=== PATIENT | male | born 1980 | race African-American/Black ===

== ENCOUNTER 2019-11-13 18:19 | Emergency (ER) | payer OTHER, SELFPAY ==
--- NOTE | ~2019-11-13 | XR_ITS ---
EXAMINATION: XR chest 2V EXAM DATE: 11/13/2019 18:52 INDICATION: Midsternal chest pain. TECHNIQUE: Frontal and lateral projections of the chest obtained and reviewed. There is no prior razia dy for comparison. FINDINGS: The lungs are clear. There are no pleural effusions. The cardiomediastinal silhouette is within normal limits. There is no pneumothorax suspected. The bones and soft tissues are unremarkab le. IMPRESSION: Normal chest x-ray exam. Reviewed, dictated and finalized at location A. IMPRESSION: Normal chest x-ray exam.
[2019-11-13 18:24] VITALS: BP 144/114; PULSE 91; RESP 20; TEMP 36.9; O2SAT 99
[2019-11-13 18:30] VITALS: PULSE 89
--- NOTE | 2019-11-13 18:32 | ECG_ITS ---
Measurements Intervals [place] Rate: 90 P: 67 LA: 169 QRS: 37 QRSD: 100 T: 28 QT: 356 QTc: 436 Interpretive Statements SINUS RHYTHM NONSPECIFIC ST ELEVATION IN DIFFUSE LEADS- PROBABLY EARLY REPOLARIZATION BASELINE ARTIFACT- I, III, AVL, AVF BORDERLINE ECG Electronically Signed On 11-14-2019 7:15:31 CDT by Tonny Cazares D.O.
[2019-11-13 18:44] LABS: Basophils Percent Auto 0.1 % (0.2-1.2); Eosinophils Absolute Auto 0.2 K/mm3 (0-0.3); Eosinophils Percent Auto 2.6 % (0-4.4); Hematocrit 38.3 % (42.0-52.0); Hemoglobin 12.1 g/dL (14.0-18.0); Immature Granulocyte Absolute 0.02 K/mm3 (0.00-0.031); Immature Granulocyte Percent A 0.3 % (0-0.5); Lymphocytes Absolute Auto 2.84 K/mm3 (0.9-3.2); Lymphocytes Percent Auto 41.4 % (18.3-44.2); Mean Corpuscular HGB Conc 31.6 g/dl (32-36); Mean Corpuscular Hemoglobin 22.3 pg (26-34); Mean Corpuscular Volume 70.7 fl (80-100); Mean Platelet Volume 11.4 fl (7.4-10.4); Monocytes Absolute Auto 0.7 K/mm3 (0.1-0.6); Monocytes Percent Auto 10.6 % (2.6-8.5); Neutrophils Absolute Auto 3.1 K/mm3 (1.3-6.7); Platelet Count Result 229 k/mm3 (150-375); Red Blood Count 5.42 M/mm3 (4.6-6.20); Red Cell Distribution Width 14.6 % (11.5-14.5); White Blood Count 6.9 K/mm3 (4.5-10.0)
[2019-11-13 18:52] LABS: INR 0.9; Prothrombin Time 12.1 Seconds (11.1-14.7)
--- NOTE | 2019-11-13 19:18 | ED.CHESTPAIN ---
HPI - Chest Pain General Chief Complaint: Chest Pain Stated Complaint: CHEST PAIN Time Seen by Provider: 11/13/19 18:23 Source: patient Mode of arrival: ambulatory Limitations: no limitations History of Present Illness HPI narrative: This patient is a 39 year old male who presents for evaluation of left chest tightness. Patient states he developed left chest tightness 1 hour ago as he was riding in a car. He reports his pain has been constant and it is associated with mild shortness of breath. He took 2 tylenol at his onset of pain and he states his pain has not changed. He also reports this morning he had multiple episodes of burning midsternal pain radiating from chest to upper abdomen. He states this was indigestion so he made himself have emesis and he felt better. He states he is having some recurrence of his indigestion now. complaint: chest pain Onset (ago): hour(s) (1) Timing of current episode: constant Prior episodes: No Onset: during rest Pain location: left chest Pain radiation: none Quality: tightness Relieving factors: nothing Exacerbating factors: nothing Risk Factors Coronary artery disease risk factors: diabetes Related Data Allergies Allergy/AdvReac Type Severity Reaction Status Date / Time No Known Allergies Allergy Unverified 11/13/19 18:31 Review of Systems Review of Systems: All systems reviewed & are unremarkable except as noted in HPI and below Constitutional: Constitutional: Denies chills and Denies fever(s) Cardiovascular: Cardiovascular: Reports chest pain, Denies rapid heart rate, Denies radiating jaw, neck or arm pain and Denies slow heart rate Respiratory: Respiratory: Denies cough, Reports dyspnea and Denies wheezing Gastrointestinal: Gastrointestinal: Reports abdominal pain, Denies melena, Denies hematochezia and Reports heartburn Musculoskeletal: Musculoskeletal: Denies back pain PMF Past Medical History Medical History (Updated 11/14/19 @ 00:00 by Background D[place]ick) Diabetes mellitus Surgical History Surgical History (Updated 11/13/19 @ 19:19 by Unique Gasca MD) No significant past surgical history Social History Social History (Updated 11/13/19 @ 19:19 by Unique Gasca MD) Smoking packs per day: 0.75 Smoking cigarettes per day: 15.0 Alcohol intake: current Alcohol use details: social Gender identity (if verbalized by the patient): Male Exam Narrative: Exam Narrative: GENERAL: Well-appearing, well-nourished, and in no acute distress. HEAD: Normocephalic, atraumatic EYES: PERRLA and EOMI, conjunctiva clear without discharge THROAT:Mucous membranes moist, Oropharynx normal without erythema, exudate, peritonsillar swelling or fluctuance NECK: Supple, without lymphadenopathy or mass RESPIRATORY: No respiratory distress, Airway patent, Respirations non-labored, Clear to auscultation without rales, rhonchi or wheeze HEART: Regular rate and rhythm. No murmur heard. Normal peripheral pulses. ABDOMEN: Soft, epigastric tenderness, nondistended, normal active bowel sounds. No masses. No rebound or guarding, No organomegaly. EXTREMITIES: No edema, normal strength with full range of motion. SKIN: Warm, dry, normal color without rash NEURO: Alert and oriented x3. CN 2-12 grossly intact. No focal deficits. PSYCH: Normal mood and affect. Course Reevaluation(s) Reevaluation #1: Patient states he has no chest pain. I have discussed with patient his symptoms were atypical for angina. I reviewed labs and he was found to have anemia that is chronic. He also knows he has uncontrolled diabetes Date: 11/13/19 Time: 22:36 Vital Signs Vital signs: Vital Signs Temperature 98.5 F 11/13/19 18:24 Pulse Rate 91 11/13/19 18:24 Respiratory Rate 20 11/13/19 18:24 Blood Pressure 144/114 H 11/13/19 18:24 Pulse Oximetry 99 11/13/19 18:24 Temperature 98.5 F 11/13/19 18:24 Pulse Rate 79 11/13/19 22:48 Respiratory Rate 2
[2019-11-13 19:30] LABS: Troponin I < 0.012 ng/mL (0.000-0.034)
[2019-11-13 19:32] LABS: D Dimer < 0.22 ug/mL (<0.48)
[2019-11-13] MEDS: BELLADONNA ALK/PHENOB ELIX 10 ML, MAG HYDROX/ALUMINUM HYD/SIMETH 30 ML, LIDOCAINE HCL 2... PO (19:33)
[2019-11-13] MEDS: PANTOPRAZOLE SODIUM IV 40 MG VIAL IV PUSH (19:34)
[2019-11-13] MEDS: ONDANSETRON INJ 4 MG/2 ML VIAL IV PUSH (19:34)
[2019-11-13 19:36] LABS: Alanine Aminotransferase 14 U/L (4-50); Albumin Level 4.2 g/dL (3.5-5.1); Alkaline Phosphatase 117 U/L (38-126); Aspartate Amino Transferase 25 U/L (17-59); Bilirubin,Total 0.5 mg/dL (0.2-1.3); Blood Urea Nitrogen 13 mg/dL (9-20); Calcium 9.4 mg/dL (8.4-10.2); Carbon Dioxide 27 mmol/L (22-30); Chloride 94 mmol/L (98-107); Estimated CRCL calculation 151 ml/min; Estimated Glomerular Filt Rate > 60; Glucose 422 mg/dL (75-110); Lipase 56 U/L (23-300); Potassium 4.3 mmol/L (3.4-5.0); Sodium 130 mmol/L (137-145)
[2019-11-13 19:39] VITALS: BP 128/93; PULSE 91; RESP 20; O2SAT 98
[2019-11-13 20:30] VITALS: BP 134/95; PULSE 75; RESP 20; O2SAT 100
[2019-11-13 21:31] VITALS: BP 147/103; PULSE 82; RESP 20; O2SAT 99
[2019-11-13 21:59] LABS: Troponin I < 0.012 ng/mL (0.000-0.034)
[2019-11-13 22:48] VITALS: BP 137/99; PULSE 79; RESP 20; O2SAT 99
== END 2019-11-13 22:59 | disposition home or self-care (01) ==
PROVIDERS: Emergency Medicine; Emergency Provider General Practice
DX: R07.89 Other chest pain (principal); E11.65 Type 2 diabetes mellitus with hyperglycemia; D64.9 Anemia, unspecified; F17.290 Nicotine dependence, other tobacco product, uncomplicated; R94.31 Abnormal electrocardiogram [ECG] [EKG]
CPT/HCPCS: 36415; 71046; 80048; 80076; 83690; 84484; 85025; 85380; 85610; 85730; 93005; 96374; 96375; 99284; A9270; C9113; J2405

== ENCOUNTER 2020-06-03 21:47 | Emergency (ER) | payer OTHER, SELFPAY ==
--- NOTE | 2020-06-03 21:54 | ED.SKABFB ---
HPI - Skin/Abscess/Foreign Bdy General Chief complaint: Animal Bite Stated complaint: spider bite to back Time Seen by Provider: 06/03/20 21:53 Source: patient Mode of arrival: ambulatory Limitations: no limitations History of Present Illness HPI narrative: Patient is a 40-year-old male who presents for evaluation of irritation, rash to upper back. Patient states his symptoms started this morning when he was driving he felt something crawling on his back then felt immediate itchiness after he thinks he was bitten by something. He put his hand back there and had some raised areas on his skin that were very itchy. He denies any redness or discharge from these. No blistering. No new soaps, lotions or detergents. No rashes on other parts of his body. No fever or chills. He states he has had some increased itchiness at the sites today. He does have a history of shingles and states this feels very different. Patient states blood sugars have been well controlled. He denies any nausea, vomiting, chest pain or shortness of breath. Related Data Allergies Allergy/AdvReac Type Severity Reaction Status Date / Time No Known Allergies Allergy Unverified 11/13/19 18:31 Review of Systems Review of Systems: Narrative: CONSTITUTIONAL: Denies fever, chills, or sweats. EYES: Denies visual changes, redness, or discharge. ENT: Denies rhinorrhea, congestion, sore throat, or otalgia. CARDIOVASCULAR: Denies chest pain, palpitations, or edema. RESPIRATORY: Denies cough or dyspnea. GASTROINTESTINAL: Denies abdominal pain, nausea, vomiting, or diarrhea. GENITOURINARY: Denies dysuria or hematuria. SKIN: Reports raised bite hallman to upper back, reports itching without blisters MUSCULOSKELETAL: Denies back pain, joint pain, or myalgia. NEUROLOGIC: Denies headache, numbness, or weakness. [facility] Past Medical History Medical History Diabetes mellitus Surgical History Surgical History No significant past surgical history Social History Social History Smoking packs per day: 0.75 Smoking cigarettes per day: 15.0 Alcohol intake: current Gender identity (if verbalized by the patient): Male Exam Narrative: Exam Narrative: GENERAL: Awake, alert, conversant HEAD: Normocephalic, atraumatic. EYES: PERRLA and EOMI. ENT: Nares clear, no rhinorrhea or epistaxis. Mucous membranes moist. NECK: Supple. CHEST: No respiratory distress, breathing even and non labored HEART: Regular rate, sinus rhythm ABDOMEN:Non distended, non tender EXTREMITIES: Normal range of motion. No edema. SKIN: Warm, dry, 5 raised, mildly indurated areas to upper cervical region which cross midline, with mild erythema, no fluctuance, no drainage. No vesicles or clustering. No urticaria. They are mildly tender to palpation. No associated cervical lymphadenopathy. No petechiae. No purulent drainage. No surrounding cellulitis. NEURO:No focal deficits. Alert and oriented x3 Course Vital Signs Vital signs: Vital Signs Pulse Rate 96 06/03/20 21:56 Respiratory Rate 18 06/03/20 21:56 Blood Pressure 133/88 06/03/20 21:56 Pulse Oximetry 98 06/03/20 21:56 Pulse Rate 96 06/03/20 21:56 Respiratory Rate 18 06/03/20 21:56 Blood Pressure 133/88 06/03/20 21:56 Pulse Oximetry 98 06/03/20 21:56 MDM - Skin/Abscess/Foreign Bdy MDM Narrative Medical decision making narrative: Patient presented for irritation, itching rash to upper cervical region, was concern for possible envenomation versus bite. The time of assessment, ABCs are intact. No sign of anaphylaxis. No current chest pain, shortness of breath, no diffuse urticaria. Patient has had symptoms over 12 hours at this point, wanted to be evaluated due to the itchy nature of these. No evidence of abscess or cellulitis. This does not seem co
[2020-06-03 21:56] VITALS: BP 133/88; PULSE 96; RESP 18; O2SAT 98
[2020-06-03] MEDS: FAMOTIDINE 20 MG TABLET PO (22:12)
[2020-06-03] MEDS: diphenhydrAMINE HCl CAP 25 MG CAPSULE PO (22:13)
== END 2020-06-03 22:29 | disposition home or self-care (01) ==
LOC: ANHED 22:19
PROVIDERS: Emergency Provider Emergency Medicine; PCP Family Medicine
DX: R21 Rash and other nonspecific skin eruption (principal); W57.XXXA Bitten or stung by nonvenomous insect and other nonvenomous arthropods, initial encounter
CPT/HCPCS: 99283; A9270; J1100

== ENCOUNTER 2020-07-05 18:55 | Emergency (ER) | payer OTHER, SELFPAY ==
[2020-07-05 18:57] VITALS: BP 177/98; PULSE 97; RESP 16; TEMP 36.6; O2SAT 99
[2020-07-05 19:07] LABS: Glucose Point of Care 177 (65-105)
--- NOTE | 2020-07-05 19:49 | ED.ABDPAIN ---
HPI - Abdominal Pain General Chief Complaint: Urogenital-Male Stated Complaint: STD CHECK Time Seen by Provider: 07/05/20 19:02 Source: patient Mode of arrival: ambulatory Limitations: no limitations History of Present Illness HPI narrative: Patient is a 40-year-old male who presents requesting STD evaluation patient notes that he has some slight tingling with urination patient denies any back pain abdominal pain hematuria or other concerns. Patient denies any known exposures. Patient would like to be tested and treated and notes he will follow with primary care Related Data Allergies Allergy/AdvReac Type Severity Reaction Status Date / Time No Known Allergies Allergy Unverified 11/13/19 18:31 Review of Systems Review of Systems: All systems reviewed & are unremarkable except as noted in HPI and below PMFSH Past Medical History Medical History Diabetes mellitus Surgical History Surgical History No significant past surgical history Social History Social History Smoking packs per day: 0.75 Smoking cigarettes per day: 15.0 Alcohol intake: current Gender identity (if verbalized by the patient): Male Exam Narrative: Exam Narrative: GENERAL: Well-appearing, well-nourished, and in no acute distress. HEAD: Normocephalic, atraumatic. EYES: PERRLA and EOMI. ENT: Nares clear, no rhinorrhea or epistaxis. Mucous membranes moist. ABDOMEN: Soft, nontender, nondistended EXTREMITIES: Normal range of motion. No edema. SKIN: Warm, dry, no rash. NEURO: No focal deficits. Alert and oriented x3. PSYCH: Normal mood and affect. Course Course Emergency Course: Patient tested and treated as requested will follow with primary care felt appropriate for outpatient reevaluation Vital Signs Vital signs: Vital Signs Temperature 98 F 07/05/20 18:57 Pulse Rate 97 07/05/20 18:57 Respiratory Rate 16 07/05/20 18:57 Blood Pressure 177/98 H 07/05/20 18:57 Pulse Oximetry 99 07/05/20 18:57 Temperature 98 F 07/05/20 18:57 Pulse Rate 97 07/05/20 18:57 Respiratory Rate 16 07/05/20 18:57 Blood Pressure 177/98 H 07/05/20 18:57 Pulse Oximetry 99 07/05/20 18:57 MDM - Abdominal Pain MDM Narrative Medical decision making narrative: Patient was tested for STDs as requested will be discharged home with outpatient management provided with reasons to return Lab Data Labs: Lab Results 07/05/20 Range/Units 19:02 POC Capillary Glucose 177 H (65-105) mg/dl Discharge Plan Discharge Clinical Impression: Urethritis Patient Disposition: Home, Self-Care Condition: Stable Instructions: Antibiotic Form, Safe Sex Practices (ED) Additional Instructions: Follow up with primary care in the next 2-3 days for re-evaluation and culture results. Antibiotics as prescribed. Increase fluid intake. Tylenol and Motrin for pain and or fever if needed. Follow up with your doctor for further care. Call your doctor or return to the emergency department if needed for worsening symptoms or problems, especially if you have persistent high fever, vomiting, inability to urinate, weakness, blood in your urine, chnage in mental status, or other serious concerns. Prescriptions: New doxycycline hyclate 100 mg capsule 100 mg PO BID 7 Days Qty: 14 RF: 0 No Action metformin 500 mg tablet 500 mg PO BID Qty: 30 RF: 0 omeprazole magnesium [Prilosec OTC] 20 mg tablet,delayed release (DR/EC) 20 mg PO DAILY Qty: 14 RF: 0 sucralfate [Carafate] 1 gram tablet 1 gm PO Q6H Qty: 30 RF: 0 cephalexin [Keflex] 500 mg capsule 500 mg PO Q8H 10 Days Qty: 30 RF: 0 diphenhydramine HCl [Benadryl] 25 mg capsule 25 mg PO TID PRN (Reason: allergic reaction) Qty: 14 RF: 0 ibuprofen 400 mg tablet 400 mg PO TID PRN (
[2020-07-05 19:59] LABS: Add Urine Microscopic? YES; Appearance Urine Clear (Clear); Bacteria Urine Trace /hpf; Bilirubin Urine Negative (Negative); Blood Urine Negative (Negative); Color Urine Colorless (Yellow); Glucose Urine UA 3+ mg/dL (Negative); Ketones Urine Negative (Negative); Leukocyte Esterase Ur Negative LEU/UL (Negative); Nitrate Urine Negative (Negative); Protein Urine Negative (Negative); RBC Urine 0-2 /hpf (0-2); Specific Grav Ur 1.012 (1.001-1.035); Urobilinogen Urine Negative mg/dL (<2.0); WBC Urine 0-3 /hpf
[2020-07-05] MEDS: LIDOCAINE HCL 1% LOCAL INJ 20 ML VIAL (20:05)
[2020-07-05] MEDS: cefTRIAXone 250 MG VIAL 500 MG IM (20:05)
== END 2020-07-05 20:10 | disposition home or self-care (01) ==
PROVIDERS: Emergency Medicine Emergency Medical Services; Emergency Provider Emergency Medicine; PCP Family Medicine
DX: N34.2 Other urethritis (principal); E11.9 Type 2 diabetes mellitus without complications; F17.210 Nicotine dependence, cigarettes, uncomplicated; Z79.84 Long term (current) use of oral hypoglycemic drugs
CPT/HCPCS: 81001; 87491; 87591; 96372; 99283; J0696

== ENCOUNTER 2020-12-15 12:07 | Emergency (ER) | payer OTHER, SELFPAY ==
--- NOTE | ~2020-12-15 | XR_ITS ---
EXAMINATION: XR shoulder LT min 2V EXAM DATE: 12/15/2020 15:20 INDICATION: Pain with movement X3 weeks worse today, generalized left shoulder pain. No known recent injury. TECHNIQUE: The following left shoulder projections obtained: frontal projection with internal rotatio n, frontal projection with external rotation, Grashey, and scapular Y view (4+ views). There is no p rior study for comparison. FINDINGS: Left lung apex unremarkable. Unremarkable left glenohumeral and acromioclavicular joints. There are no acute fractures or dislocations identified. There is no subcutaneous gas. Several sma ll calcifications along the expected location of biceps tendon, rotator cuff. There are no radiopaqu e foreign bodies. IMPRESSION: Small left biceps tendon/rotator cuff calcific tendinosis. Reviewed, dictated and finalized at location A.
[2020-12-15 13:56] VITALS: BP 143/92; PULSE 77; RESP 16; TEMP 36.9; O2SAT 100
--- NOTE | 2020-12-15 14:50 | ED.GENADULT ---
HPI - General Adult General Chief complaint: Extremity Injury, Upper Stated complaint: L Shoulder and low back pain Time Seen by Provider: 12/15/20 14:48 Source: patient and family Mode of arrival: ambulatory Limitations: no limitations History of Present Illness HPI narrative: Patient is here for evaluation of left shoulder pain. He was evaluated and treated in an urgent care several weeks ago and given muscle relaxants and told to take ibuprofen he states that he got no relief. He denies any recent or remote injury to his left shoulder or neck. 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 The pain came on and has gotten worse, it is especially painful in the back of his shoulder. Forward extension does not bother him but abduction and active internal rotation is painful. Onset (ago): week(s) Severity: moderate Quality: aching Pain Consistency: constant Relieving factors: none Exacerbating factors: movement Associated symptoms: denies other symptoms Related Data Allergies Allergy/AdvReac Type Severity Reaction Status Date / Time No Known Allergies Allergy Verified 12/15/20 14:14 Review of Systems Review of Systems: All systems reviewed & are unremarkable except as noted in HPI and below PMFSH Past Medical History Medical History Diabetes mellitus Surgical History Surgical History No significant past surgical history Social History Social History Smoking packs per day: 0.75 Smoking cigarettes per day: 15.0 Alcohol intake: current Gender identity (if verbalized by the patient): Male Exam Const: General: healthy appearing, no acute distress and alert HENMT: Head: normal to inspection Eyes: Pupils: Equal, round and reactive pupils present Resp: Effort & Inspection: normal respiratory effort Cardio: Rate: regular rate Rhythm: regular rhythm Skin: General skin exam: normal color Extrem: Left upper extremity: normal to inspection, normal capillary refill and shoulder/upper arm inspection abnormal, tenderness over the deltoid bursa (to the back) and abnormal ROM pain with active ROM in ABduction, in internal rotation and external rotation- and pain with passive ROM (same) Psych: Mental Status: mental status grossly normal Course Course Emergency Course: Radiology results reviewed with patient he has tendinitis in his rotator cuff. He got very little relief from the 800 mg ibuprofens he was previously prescribed. I will give him a Medrol Dosepak to see if that helps with the inflammation. He has had a question about acid reflux I gave him recommendations for [id number] medications. He is to follow-up with his primary care physician to determine if he is eligible for a steroid injection in his shoulder. If this treatment does not Vital Signs Vital signs: Vital Signs Temperature 36.9 C 12/15/20 13:56 Pulse Rate 77 12/15/20 13:56 Respiratory Rate 16 12/15/20 13:56 Blood Pressure 143/92 H 12/15/20 13:56 Pulse Oximetry 100 12/15/20 13:56 Temperature 36.9 C 12/15/20 13:56 Pulse Rate 77 12/15/20 13:56 Respiratory Rate 16 12/15/20 13:56 Blood Pressure 143/92 H 12/15/20 13:56 Pulse Oximetry 100 12/15/20 13:56 Medical Decision Making Vital Signs Vital Signs: Vital Signs Temperature 36.9 C 12/15/20 13:56 Pulse Rate 77 12/15/20 13:56 Respiratory Rate 16 12/15/20 13:56 Blood Pressure 143/92 H 12/15/20 13:56 Pulse Oximetry 100 12/15/20 13:56 Temperature 36.9 C 12/15/20 13:56 Pulse Rate 77 12/15/20 13:56 Respiratory Rate 16 12/15/20 13:56 Blood Pressure 143/92 H 12/15/20 13:56 Pulse Oximetry 100 12/15/20 13:56 Discharge Plan Discharge Clinical Impression: Calcific tendonitis of left shoulder Acid reflux Qualifiers: Esophagitis presence: esophagitis
[2020-12-15] MEDS: traMADol HCL (*CRX) 50 MG TABLET PO (15:35)
== END 2020-12-15 16:19 | disposition home or self-care (01) ==
PROVIDERS: Emergency Provider Emergency Medicine; PCP Family Medicine
DX: M75.32 Calcific tendinitis of left shoulder (principal); K21.9 Gastro-esophageal reflux disease without esophagitis; E11.9 Type 2 diabetes mellitus without complications; F17.210 Nicotine dependence, cigarettes, uncomplicated
CPT/HCPCS: 73030; 99283; A9270

== ENCOUNTER 2020-12-23 06:19 | Emergency (ER) | payer OTHER, SELFPAY ==
--- NOTE | ~2020-12-23 | XR_ITS ---
EXAMINATION: XR chest 1V portable DATE: 12/23/2020 06:46 INDICATION: Cough. Sore throat. TECHNIQUE: A single frontal view of the chest was obtained. COMPARISON: Chest 2 views 11/13/2019, CT abdomen and pelvis 08/16/2018 FINDINGS: The chest demonstrates clear lungs without pneumonia, pleural effusion, or pneumothorax. Th e heart size is normal. IMPRESSION: 1. No acute cardiopulmonary disease. Reviewed, dictated and finalized at location A.
[2020-12-23 06:32] VITALS: BP 153/105; PULSE 93; RESP 18; TEMP 36.6; O2SAT 99
[2020-12-23 07:12] LABS: Basophils Percent Auto 0.4 % (0.2-1.2); Eosinophils Absolute Auto 0.4 K/mm3 (0-0.3); Hemoglobin 13.9 g/dL (14.0-18.0); Immature Granulocyte Absolute 0.05 K/mm3 (0.00-0.031); Immature Granulocyte Percent A 0.7 % (0-0.5); Lymphocytes Absolute Auto 2.61 K/mm3 (0.9-3.2); Lymphocytes Percent Auto 36.3 % (18.3-44.2); Mean Corpuscular HGB Conc 30.9 g/dl (32-36); Mean Corpuscular Hemoglobin 22.6 pg (26-34); Mean Corpuscular Volume 73.3 fl (80-100); Mean Platelet Volume 10.9 fl (7.4-10.4); Monocytes Absolute Auto 0.8 K/mm3 (0.1-0.6); Monocytes Percent Auto 10.4 % (2.6-8.5); Neutrophils Absolute Auto 3.3 K/mm3 (1.3-6.7); Neutrophils Percent Auto 46.2 % (45.5-73.1); Platelet Count Result 251 k/mm3 (150-375); Red Blood Count 6.14 M/mm3 (4.6-6.20); Red Cell Distribution Width 15.3 % (11.5-14.5); White Blood Count 7.2 K/mm3 (4.5-10.0)
[2020-12-23 07:15] LABS: Albumin Level 4.3 g/dL (3.5-5.1); Alkaline Phosphatase 161 U/L (38-126); Aspartate Amino Transferase 27 U/L (17-59); Bilirubin,Total 0.4 mg/dL (0.2-1.3); Blood Urea Nitrogen 11 mg/dL (9-20); Carbon Dioxide 26 mmol/L (22-30); Estimated CRCL calculation 150 ml/min; Estimated Glomerular Filt Rate > 60; Glucose 213 mg/dL (75-110); Lipase 146 U/L (23-300)
--- NOTE | 2020-12-23 07:23 | ED.GENADULT ---
HPI - General Adult General Chief complaint: Unspecified Stated complaint: Sore throat Time Seen by Provider: 12/23/20 07:03 History of Present Illness HPI narrative: Patient is a 40-year-old male who presents ER with cold symptoms. For the last 2 days he has had sinus congestion with sinus pressure. Last night he developed postnasal drip with productive cough. When he is coughing it causes him pain in his abdomen and chest. No fevers or chills or sweats. He does have fatigue. No known sick contacts with the exception of his daughter who apparently had exposure to Covid. Patient has no loss of taste or smell. Denies dyspnea. Cannot report any alleviating factors. Related Data Home Medications Medication Instructions Recorded Confirmed gabapentin 12/23/20 sitagliptin [Januvia] mg 12/23/20 Allergies Allergy/AdvReac Type Severity Reaction Status Date / Time No Known Allergies Allergy Verified 12/15/20 14:14 Review of Systems Review of Systems: All systems reviewed & are unremarkable except as noted in HPI and below Constitutional: Constitutional: Denies chills and Denies fever(s) ENT: Reports nasal congestion, Reports post nasal drip and Reports sore throat Respiratory: Respiratory: Denies chest congestion, Reports cough and Denies dyspnea Gastrointestinal: Gastrointestinal: Reports abdominal pain, Reports nausea and Reports vomiting PMFSH Past Medical History Medical History Diabetes mellitus Surgical History Surgical History No significant past surgical history Social History Social History Smoking packs per day: 0.75 Smoking cigarettes per day: 15.0 Alcohol intake: current Alcohol use details: social Gender identity (if verbalized by the patient): Male Exam Narrative: Exam Narrative: GENERAL: Well-appearing, well-nourished, and in no acute distress. HEAD: Normocephalic, atraumatic. EYES: PERRL and EOMI. ENT: Mucous membranes moist. Normal-appearing posterior oropharynx without tonsillar hypertrophy or exudate. Uvula midline and nonedematous. Tolerating oral secretions without issue. CHEST: Clear to auscultation. No respiratory distress. HEART: Regular rate and rhythm. Normal peripheral pulses. ABDOMEN: Soft, nontender, nondistended. EXTREMITIES: Normal range of motion. No edema. NEURO: Alert and oriented x3. Course Course Emergency Course: Strep negative no evidence of pneumonia. Discharge with supportive care. Encouraged patient to obtain Covid vaccination. Vital Signs Vital signs: Vital Signs Temperature 97.9 F 12/23/20 06:32 Pulse Rate 93 12/23/20 06:32 Respiratory Rate 18 12/23/20 06:32 Blood Pressure 153/105 H 12/23/20 06:32 Pulse Oximetry 99 12/23/20 06:32 Temperature 97.9 F 12/23/20 06:32 Pulse Rate 93 12/23/20 06:32 Respiratory Rate 18 12/23/20 06:32 Blood Pressure 153/105 H 12/23/20 06:32 Pulse Oximetry 99 12/23/20 06:32 Medical Decision Making Vital Signs Vital Signs: Vital Signs Temperature 97.9 F 12/23/20 06:32 Pulse Rate 93 12/23/20 06:32 Respiratory Rate 18 12/23/20 06:32 Blood Pressure 153/105 H 12/23/20 06:32 Pulse Oximetry 99 12/23/20 06:32 Temperature 97.9 F 12/23/20 06:32 Pulse Rate 93 12/23/20 06:32 Respiratory Rate 18 12/23/20 06:32 Blood Pressure 153/105 H 12/23/20 06:32 Pulse Oximetry 99 12/23/20 06:32 Lab Data Result diagrams: 12/23/20 06:55 12/23/20 06:55 Labs: Lab Results 12/23/20 12/23/20 12/23/20 Range/Units 06:55 06:55 07:47 WBC 7.2 (4.5-10.0) K/mm3 RBC 6.14 (4.6-6.20) M/mm3 Hgb 13.9 L (14.0-18.0) g/dL Hct 45.0 (42.0-52.0) % MCV 73.3 L (80-100) fl MCH 22.6 L (26-34) pg MCHC 30.9 L (32-36) g/dl RDW 15.3 H (11.5
[2020-12-23 08:04] LABS: Alanine Aminotransferase 23 U/L (4-50); Anion Gap 9 mmol/L (8-16); Calcium 9.2 mg/dL (8.4-10.2); Chloride 98 mmol/L (98-107); Potassium 3.9 mmol/L (3.4-5.0); Sodium 133 mmol/L (137-145)
[2020-12-23 08:08] LABS: Add Urine Microscopic? YES; Appearance Urine Clear (Clear); Bilirubin Urine Negative (Negative); Blood Urine Negative (Negative); Color Urine Straw (Yellow); Glucose Urine UA 3+ mg/dL (Negative); Ketones Urine Negative (Negative); Leukocyte Esterase Ur Negative LEU/UL (Negative); Mucus Urine Rare /lpf; Nitrate Urine Negative (Negative); Protein Urine Negative (Negative); Urobilinogen Urine Negative mg/dL (<2.0)
[2020-12-23 08:43] LABS: Specific Grav Ur 1.031 (1.001-1.035)
[2020-12-23 08:52] VITALS: BP 136/96; PULSE 82; RESP 18; O2SAT 98
[2020-12-23 17:38] LABS: SARS-CoV-2 RNA PCR Negative
== END 2020-12-23 08:54 | disposition home or self-care (01) ==
PROVIDERS: General Practice; Emergency Provider Emergency Medicine; PCP Family Medicine
DX: Z20.822 Contact with and (suspected) exposure to COVID-19 (principal); B34.9 Viral infection, unspecified
CPT/HCPCS: 36415; 71045; 80053; 81001; 83690; 85025; 87081; 87880; 99283; C9803; U0003; U0005

== ENCOUNTER 2021-02-16 08:26 | Emergency (ER) | payer OTHER, SELFPAY ==
[2021-02-16] VITALS (18 sets, daily range): BP systolic 127–157; BP diastolic 82–101; PULSE 104; RESP 18; TEMP 37.1–37.7; O2SAT 97–100
--- NOTE | 2021-02-16 08:53 | ED.GENADULT ---
HPI - General Adult General Chief complaint: Headache Stated complaint: valencia/body aches Time Seen by Provider: 02/16/21 08:29 Source: patient History of Present Illness HPI narrative: Patient is a 41 y/o male complaining of sharp bilateral frontal headache starting 2 days ago. He rates his pain as 7/10. He states that lights make his headache worse. He has no tried to take meds for his headache. He also has generalized body ache. He has no fever, cough or sorethroat. He has no focal weakness or numbness. He has not had COVID vaccine. Related Data Home Medications Medication Instructions Recorded Confirmed canagliflozin [Invokana] mg 02/16/21 Allergies Allergy/AdvReac Type Severity Reaction Status Date / Time No Known Allergies Allergy Verified 02/16/21 08:33 Review of Systems Constitutional: Constitutional: Denies chills, Denies fever(s), Reports headache(s) and Denies weakness Eyes: Eyes: Denies blurry vision ENT: Reports headache(s) and Denies neck pain Cardiovascular: Cardiovascular: Denies chest pain and Denies dyspnea Respiratory: Respiratory: Denies cough and Denies dyspnea Gastrointestinal: Gastrointestinal: Denies abdominal pain, Denies diarrhea, Denies nausea and Denies vomiting Genitourinary: Genitourinary: Denies hematuria and Denies dysuria Musculoskeletal: Musculoskeletal: Denies back pain and Denies neck pain Neurologic: Reports headache(s) and Denies weakness PMFSH Past Medical History Medical History Diabetes mellitus Surgical History Surgical History No significant past surgical history Social History Social History Smoking packs per day: 0.75 Smoking cigarettes per day: 15.0 Alcohol intake: current Alcohol use details: social Gender identity (if verbalized by the patient): Male Exam Const: General: no acute distress and well developed Orientation/consciousness: oriented to person, oriented to place, oriented to time and patient oriented x3 HENMT: Head: normocephalic Ears: external ears normal General nose exam: Normal external nose present Eyes: General: appearance normal, both eyes and all related structures Conjunctivae: conjunctivae normal Neck: Neck: normal visual inspection and full ROM Chest: Chest palpation & inspection: normal inspection of the chest and no tenderness Resp: Effort & Inspection: normal respiratory effort Auscultation: clear to auscultation bilaterally Cardio: Rate: regular rate Rhythm: regular rhythm GI: GI Palp: No abdominal tenderness and Yes Soft to palpation Skin: General skin exam: normal color and turgor normal Neuro: General: oriented to person, oriented to place, oriented to time and patient oriented x3 Cranial nerves: Yes CN's II-XII intact bilaterally Cognition (Neuro): normal cognition Speech: normal speech Motor exam (neuro): 5/5 motor strength present throughout Sensory Exam: normal sensation Coordination: [id number] test normal and [id number] test normal Extrem: General: normal to inspection, full ROM and no pedal edema Psych: Appearance: grossly normal Mental Status: mental status grossly normal Affect: normal affect Course Reevaluation(s) Reevaluation #1: Rechecked. Patient states that his headache is better and he rates his pain as 5/10. I offered patient LP for further evaluation to r/o [employer] infection. However, patient declined and wanted to go home and return if his symptoms get worse. He is aware that LP is the only way to definitively r/o infection. Date: 02/16/21 Time: 11:16 Vital Signs Vital signs: Vital Signs Temperature 37.7 C H 02/16/21 08:30 Pulse Rate 104 H 02/16/21 08:30 Respiratory Rate 18 02/16/21 08:30 Blood Pressure 157/100 H 02/16/21 08:30 Pulse Oximetry 100 02/16/21 08:30 Temperature 37.1 C 02/16/21 1
[2021-02-16] MEDS: SODIUM CHLORIDE 0.9% IV 1,000 ML 999 ML IV CONT (08:55)
[2021-02-16] MEDS: diphenhydrAMINE HCl INJ 50 MG/ML VIAL 25 MG IV PUSH (08:55)
[2021-02-16] MEDS: METOCLOPRAMIDE HCL INJ 10 MG/2 ML VIAL IV PUSH (08:55)
[2021-02-16] MEDS: KETOROLAC 30 MG/ML VIAL (*BKC) IV PUSH (08:55)
[2021-02-16 09:01] LABS: Basophils Percent Auto 0.2 % (0.2-1.2); Eosinophils Absolute Auto 0.1 K/mm3 (0-0.3); Hematocrit 39.2 % (42.0-52.0); Hemoglobin 12.2 g/dL (14.0-18.0); Immature Granulocyte Absolute 0.03 K/mm3 (0.00-0.031); Immature Granulocyte Percent A 0.5 % (0-0.5); Lymphocytes Percent Auto 26.6 % (18.3-44.2); Mean Corpuscular HGB Conc 31.1 g/dl (32-36); Mean Corpuscular Hemoglobin 22.8 pg (26-34); Mean Corpuscular Volume 73.3 fl (80-100); Mean Platelet Volume 10.4 fl (7.4-10.4); Monocytes Absolute Auto 1.2 K/mm3 (0.1-0.6); Monocytes Percent Auto 19.8 % (2.6-8.5); Neutrophils Absolute Auto 3.1 K/mm3 (1.3-6.7); Neutrophils Percent Auto 50.9 % (45.5-73.1); Platelet Count Result 242 k/mm3 (150-375); Red Blood Count 5.35 M/mm3 (4.6-6.20); Red Cell Distribution Width 15.1 % (11.5-14.5)
[2021-02-16 09:18] LABS: Alanine Aminotransferase 23 U/L (4-50); Albumin Level 4.3 g/dL (3.5-5.1); Alkaline Phosphatase 128 U/L (38-126); Anion Gap 8 mmol/L (8-16); Aspartate Amino Transferase 27 U/L (17-59); Bilirubin,Total 0.5 mg/dL (0.2-1.3); Blood Urea Nitrogen 13 mg/dL (9-20); Calcium 8.8 mg/dL (8.4-10.2); Carbon Dioxide 24 mmol/L (22-30); Chloride 102 mmol/L (98-107); Estimated CRCL calculation 129 ml/min; Estimated Glomerular Filt Rate > 60; Glucose 125 mg/dL (65-110); Sodium 134 mmol/L (137-145)
[2021-02-16 09:21] LABS: EDCOVIDSCREEN Negative (Negative)
== END 2021-02-16 11:28 | disposition home or self-care (01) ==
PROVIDERS: Emergency Provider Emergency Medicine; PCP Family Medicine
DX: Z20.822 Contact with and (suspected) exposure to COVID-19 (principal); R51.9 Headache, unspecified; F17.210 Nicotine dependence, cigarettes, uncomplicated; E11.9 Type 2 diabetes mellitus without complications
CPT/HCPCS: 36415; 80053; 85025; 87426; 96361; 96374; 96375; 99284; C9803; J1200; J1885; J2765; J7030

== ENCOUNTER 2021-04-21 10:01 | Emergency (ER) | payer OTHER, SELFPAY ==
[2021-04-21] VITALS (14 sets, daily range): BP systolic 125–145; BP diastolic 89–98; PULSE 92–105; RESP 14–25; TEMP 36.5–37.1; O2SAT 97
--- NOTE | 2021-04-21 10:57 | ED.GENADULT ---
HPI - General Adult General Chief complaint: Extremity Injury, Lower <YVONNE Monzon Last Filed: 04/21/21 11:04> Stated complaint: pain right shoulder, left leg <YVONNE Monzon Last Filed: 04/21/21 11:04> Time Seen by Provider: 04/21/21 10:05 <Timmy Cardenas PA-C - Last Filed: 04/21/21 11:04> Source: patient <YVONNE Monzon Last Filed: 04/21/21 11:04> Mode of arrival: ambulatory <YVONNE Monzon Last Filed: 04/21/21 11:04> Limitations: no limitations <YVONNE Monzon Filed: 04/21/21 11:04> History of Present Illness HPI narrative: Patient presents with chief complaint of pain to the left oblique of his abdomen that he notices when he rotates. Patient has not tried anything to alleviate his symptoms. Patient reports that when he is still there is no pain. Patient reports his pain is not influenced by eating or drinking. He denies any changes to his bowel or bladder function. Patient also wants insect bites on his left leg and right shoulder evaluated. Patient denies tick bites. Patient denies any fevers, chills, nausea, vomiting, diarrhea or any other symptoms. <YVONNE Monzon Last Filed: 04/21/21 11:04> Related Data Home medications: Home Medications Medication Instructions Recorded Confirmed canagliflozin [Invokana] mg 02/16/21 <YVONNE Monzon Last Filed: 04/21/21 11:04> Allergies/adverse reactions: Allergies Allergy/AdvReac Type Severity Reaction Status Date / Time No Known Allergies Allergy Verified 04/21/21 10:16 <YVONNE Monzon Last Filed: 04/21/21 11:04> Review of Systems Review of Systems: CONSTITUTIONAL: Denies fever, chills, or sweats. EYES: Denies visual changes, redness, or discharge. ENT: Denies rhinorrhea, congestion, sore throat, or otalgia. CARDIOVASCULAR: Denies chest pain, palpitations, or edema. RESPIRATORY: Denies cough or dyspnea. GASTROINTESTINAL: Denies abdominal pain, nausea, vomiting, or diarrhea. GENITOURINARY: Denies dysuria or hematuria. SKIN: Reports insect bites MUSCULOSKELETAL: Reports muscle pain denies back pain, joint pain, or myalgia. NEUROLOGIC: Denies headache, numbness, dizziness, or weakness. PSYCHIATRIC: Denies anxiety or depression. <Timmy Cardenas PA-C - Last Filed: 04/21/21 11:04> PMFSH Past Medical History Medical History: Medical History Diabetes mellitus <Timmy Cardenas PA-C - Last Filed: 04/21/21 11:04> Surgical History Surgical History: Surgical History No significant past surgical history <YVONNE Monzon Last Filed: 04/21/21 11:04> Social History Social History: Social History Smoking packs per day: 0.75 Smoking cigarettes per day: 15.0 Alcohol intake: current Alcohol use details: social Gender identity (if verbalized by the patient): Male <Timmy Cardenas PA-C - Last Filed: 04/21/21 11:04> Exam Narrative: GENERAL: Well-appearing, well-nourished, and in no acute distress. HEAD: Normocephalic, atraumatic. EYES: PERRLA and EOMI. CHEST: Clear to auscultation. No respiratory distress. No wheezes rales or rhonchi HEART: Regular rate and rhythm. No murmur heard. Normal peripheral pulses. ABDOMEN: Pain illicited with activation/rotation and grabbing of left oblique. Soft, nontender, nondistended, normal active bowel sounds. EXTREMITIES: Normal range of motion. No edema. SKIN: Insect bites noted to the left thigh and right shoulder. Induration noted to bite on left thigh. No fluctuance or sign of abscess. no necrosis. Warm, dry, no rash. NEURO: No focal deficits. Alert and oriented x3. PSYCH: Normal mood and affect. <Timmy Cardenas PA-C - Last Filed: 04/21/21 11:04> Course Vital Signs Vital signs: Vital Signs Pulse Rate
== END 2021-04-21 11:35 | disposition home or self-care (01) ==
PROVIDERS: Emergency Provider General Practice; PCP Family Medicine
DX: L03.116 Cellulitis of left lower limb (principal); M62.838 Other muscle spasm; E11.9 Type 2 diabetes mellitus without complications; F17.210 Nicotine dependence, cigarettes, uncomplicated
CPT/HCPCS: 99283

== ENCOUNTER 2021-06-10 09:05 | Emergency (ER) | payer OTHER, SELFPAY ==
[2021-06-10] VITALS (19 sets, daily range): BP systolic 139–161; BP diastolic 99–106; PULSE 80–93; RESP 16–18; TEMP 36.2–37.2; O2SAT 97–99
--- NOTE | 2021-06-10 10:10 | PC.NURSE ---
20g IV initiated in R AC x1 attempt. Labs drawn, well tolerated.
[2021-06-10 10:21] LABS: Basophils Percent Auto 0.5 % (0.2-1.2); Eosinophils Absolute Auto 0.3 K/mm3 (0-0.3); Eosinophils Percent Auto 4.1 % (0-4.4); Hematocrit 41.4 % (42.0-52.0); Hemoglobin 13.2 g/dL (14.0-18.0); Immature Granulocyte Absolute 0.03 K/mm3 (0.00-0.031); Immature Granulocyte Percent A 0.5 % (0-0.5); Lymphocytes Absolute Auto 2.38 K/mm3 (0.9-3.2); Lymphocytes Percent Auto 37.2 % (18.3-44.2); Mean Corpuscular HGB Conc 31.9 g/dl (32-36); Mean Corpuscular Hemoglobin 22.7 pg (26-34); Mean Corpuscular Volume 71.1 fl (80-100); Mean Platelet Volume 10.2 fl (7.4-10.4); Monocytes Absolute Auto 0.7 K/mm3 (0.1-0.6); Monocytes Percent Auto 10.2 % (2.6-8.5); Neutrophils Percent Auto 47.5 % (45.5-73.1); Platelet Count Result 271 k/mm3 (150-375); Red Blood Count 5.82 M/mm3 (4.6-6.20); Red Cell Distribution Width 14.7 % (11.5-14.5); White Blood Count 6.4 K/mm3 (4.5-10.0)
[2021-06-10 10:24] LABS: Add Urine Microscopic? YES; Appearance Urine Clear (Clear); Bilirubin Urine Negative (Negative); Blood Urine Negative (Negative); Color Urine Straw (Yellow); Glucose Urine UA 3+ mg/dL (Negative); Ketones Urine Trace mg/dL (Negative); Leukocyte Esterase Ur Negative LEU/UL (Negative); Mucus Urine Rare /lpf; Nitrate Urine Negative (Negative); Protein Urine 1+ mg/dL (Negative); RBC Urine 0-2 /hpf (0-2); Specific Grav Ur 1.023 (1.001-1.035); Urobilinogen Urine Negative mg/dL (<2.0); WBC Urine 0-3 /hpf
[2021-06-10] MEDS: SODIUM CHLORIDE 0.9% IV 1,000 ML 999 ML IV CONT (10:31)
[2021-06-10] MEDS: ONDANSETRON INJ 4 MG/2 ML VIAL IV PUSH (10:33)
[2021-06-10 10:45] LABS: Alanine Aminotransferase 34 U/L (4-50); Albumin Level 4.7 g/dL (3.5-5.1); Alkaline Phosphatase 139 U/L (38-126); Anion Gap 11 mmol/L (8-16); Aspartate Amino Transferase 31 U/L (17-59); Bilirubin,Total 0.3 mg/dL (0.2-1.3); Blood Urea Nitrogen 17 mg/dL (9-20); Calcium 9.4 mg/dL (8.4-10.2); Carbon Dioxide 25 mmol/L (22-30); Chloride 101 mmol/L (98-107); Estimated CRCL calculation 153 ml/min; Estimated Glomerular Filt Rate > 60; Glucose 248 mg/dL (65-110); Lipase 56 U/L (23-300); Potassium 4.1 mmol/L (3.4-5.0); Sodium 137 mmol/L (137-145)
[2021-06-10 12:59] LABS: Glucose Point of Care 147 mg/dl (65-105)
--- NOTE | 2021-06-10 14:02 | ED.GENADULT ---
HPI - General Adult General Chief complaint: Nausea/Vomiting/Diarrhea Stated complaint: vomiting Time Seen by Provider: 06/10/21 10:05 Source: patient Mode of arrival: ambulatory Limitations: no limitations History of Present Illness HPI narrative: Patient is a 41-year-old male with type 2 diabetes presented with chief complaint of nausea and vomiting that began this morning. Patient reports that he has been in contact with his sister and niece who tested positive for COVID. Patient reports that he does not take insulin for his diabetes but uses Invokana and Metformin. Patient denies any fever, chills, abdominal pain, urinary symptoms, shortness of breath, chest pain. Related Data Home Medications Medication Instructions Recorded Confirmed canagliflozin [Invokana] mg 02/16/21 Allergies Allergy/AdvReac Type Severity Reaction Status Date / Time No Known Allergies Allergy Verified 04/21/21 10:16 Review of Systems Review of Systems: CONSTITUTIONAL: Denies fever, chills, or sweats. EYES: Denies visual changes, redness, or discharge. ENT: Denies rhinorrhea, congestion, sore throat, or otalgia. CARDIOVASCULAR: Denies chest pain, palpitations, or edema. RESPIRATORY: Denies cough or dyspnea. GASTROINTESTINAL: Reports nausea and vomiting denies abdominal pain or diarrhea. GENITOURINARY: Denies dysuria or hematuria. SKIN: Denies rash or itching. MUSCULOSKELETAL: Denies back pain, myalgia, or joint pain NEUROLOGIC: Denies headache, numbness, dizziness, or weakness. PSYCHIATRIC: Denies anxiety or depression. [facility] Past Medical History Medical History Diabetes mellitus Surgical History Surgical History No significant past surgical history Social History Social History Smoking packs per day: 0.75 Smoking cigarettes per day: 15.0 Alcohol intake: current Alcohol use details: social Gender identity (if verbalized by the patient): Male Exam Narrative: GENERAL: Well-appearing, well-nourished, and in no acute distress. Nontoxic in appearance. Smiling and talking normally. HEAD: Normocephalic, atraumatic. EYES: PERRLA and EOMI. CHEST: Clear to auscultation. No respiratory distress. No wheezes rales or rhonchi HEART: Regular rate and rhythm. No murmur heard. Normal peripheral pulses. ABDOMEN: Soft, nontender, nondistended, normal active bowel sounds. EXTREMITIES: Normal range of motion. No edema. SKIN: Warm, dry, no rash. NEURO: No focal deficits. Alert and oriented x3. PSYCH: Normal mood and affect. Course Vital Signs Vital signs: Vital Signs Temperature 97.1 F L 06/10/21 09:09 Pulse Rate 93 06/10/21 09:09 Respiratory Rate 16 06/10/21 09:09 Blood Pressure 150/101 H 06/10/21 09:09 Pulse Oximetry 98 06/10/21 09:09 Temperature 98.9 F 06/10/21 11:15 Pulse Rate 85 06/10/21 13:35 Respiratory Rate 18 06/10/21 13:35 Blood Pressure 149/99 H 06/10/21 13:00 Pulse Oximetry 98 06/10/21 13:35 Medical Decision Making MDM Narrative Medical decision making narrative: Patient's blood sugar has improved and is now 143 with a near completion of his liter of fluids. Patient has been instructed to monitor his blood sugars and being communication with his primary care/shop coordinator in case his diabetic medications need to be adjusted. Patient vitals are stable. Patient not hypoxic or toxic. Patient tested for Covid and given quarantine instructions and return ER instructions. Differential Diagnosis Differential Diagnosis: DKA, hyperglycemia, Covid, influenza, pneumonia Vital Signs Vital Signs: Vital Signs Temperature 97.1 F L 06/10/21 09:09 Pulse Rate 93 06/10/21 09:09 Respiratory Rate 16 06/10/21 09:09 Blood Pressure 150/101 H 06/10/21 09:09 Pulse Oximetry 98 06/10/21 09:09 Temperature 98.9 F 12
[2021-06-11 02:21] LABS: SARS-CoV-2 RNA PCR Negative
== END 2021-06-10 13:36 | disposition home or self-care (01) ==
PROVIDERS: Physician Assistant; Emergency Provider Emergency Medicine; PCP Family Medicine
DX: R11.2 Nausea with vomiting, unspecified (principal); Z20.822 Contact with and (suspected) exposure to COVID-19; E11.65 Type 2 diabetes mellitus with hyperglycemia; F17.210 Nicotine dependence, cigarettes, uncomplicated; Z79.84 Long term (current) use of oral hypoglycemic drugs
CPT/HCPCS: 36415; 80053; 81001; 82948; 83690; 85025; 96361; 96374; 99284; C9803; J2405; J7030; U0003; U0005

== ENCOUNTER 2021-08-05 07:56 | Emergency (ER) | payer OTHER, SELFPAY ==
--- NOTE | ~2021-08-05 | XR_ITS ---
EXAMINATION: XR hip RT 2V w AP pelvis DATE: 08/05/2021 08:39 INDICATION: Right hip pain after kicking a tire 3 days prior TECHNIQUE: Anteroposterior view of the pelvis and anteroposterior and frog-leg lateral views of the r ight hip were obtained. COMPARISON: None. FINDINGS: Bone alignment is normal. No fracture or suspected avascular necrosis. Bilateral hip joint spaces are normal. Mild bilateral sacroiliac osteoarthritis. Mild lumbar spondylosis. Small heterotopic ossicle in the soft tissues along the subtrochanteric right femur is of doubtful clinical significance. Phle bolith in the right hemipelvis. IMPRESSION: 1. Normal right hip. 2. Mild lumbar spondylosis and mild bilateral sacroiliac osteoarthritis. Reviewed, dictated and finalized at location A. [employer]
[2021-08-05 08:00] VITALS: BP 124/85; PULSE 90; RESP 14; TEMP 36.4; O2SAT 98
--- NOTE | 2021-08-05 08:47 | ED.EXTPRO ---
HPI - Extremity Problem General Chief complaint: Extremity Problem,Nontraumatic Stated complaint: right hip pain Time Seen by Provider: 08/05/21 08:10 Source: RN notes reviewed History of Present Illness HPI Narrative: Patient presents emergency department from home for right leg pain. Patient states symptoms began 08/02 after he helped change a tire for his daughter he states he was kicking at the titer with his right leg trying to get it off. He states since that time has had pain in his right lateral and posterior hip that is worse with movement of the right leg he denies any direct trauma or injury denies falling on the leg states has been taking ibuprofen for the pain at home he denies any fevers or chills numbness or tingling in the extremities back pain abdominal pain or any other symptoms denies any bowel or bladder incontinence states he drove himself to the emergency department Related Data Home Medications Medication Instructions Recorded Confirmed canagliflozin [Invokana] mg 02/16/21 sitagliptin [Januvia] mg 08/05/21 Allergies Allergy/AdvReac Type Severity Reaction Status Date / Time No Known Allergies Allergy Verified 08/05/21 08:03 Review of Systems Review of Systems: Gen.: Denies fevers or chills ENT: Denies congestion Respiratory: Denies shortness of breath CV: Denies chest pain GI: Denies abdominal pain nausea, emesis denies bladder incontinence Musculoskeletal: See HPI Neuro: Denies numbness, tingling, weakness or focal weakness Skin: Denies rash Except as documented, all other systems reviewed and negative [facility] Past Medical History Medical History Diabetes mellitus Surgical History Surgical History No significant past surgical history Social History Social History Smoking packs per day: 0.75 Smoking cigarettes per day: 15.0 Alcohol intake: current Alcohol use details: social Gender identity (if verbalized by the patient): Male Exam Narrative: APPEARANCE: No acute distress, nontoxic, resting in bed EYES: EOMI HEENT: Normocephalic, atraumatic, OMM RESPIRATORY: No respiratory distress Clear to auscultation bilaterally with no rhonchi wheezing or rales. CARDIOVASCULAR: Regular rate and rhythm without murmurs rubs or gallops. ABDOMINAL: Soft, nontender, nondistended, no rebound or guarding Back: No midline thoracic lumbar tenderness palpation MUSCULOSKELETAl: Moves all extremities. No clubbing, cyanosis or edema. Tender palpation of the right lateral and posterior lateral right hip in the region of the hamstring no pain with flexion of the right hip pain with abduction, no tenderness of the right knee or ankle dorsalis pedis pulse 2+ neurovascular intact NEURO: Awake and alert. Following commands, speech normal, no focal deficits SKIN:: Warm, dry. No rashes lesions or abrasions PSYCHIATRIC: Normal affect/mood, Course Course Emergency Course: Discussed with patient results of workup and diagnosis. Discussed need for follow-up with primary care, proper use of medication, and reasons to return to the emergency department. Patient understands and agrees to current treatment plan Vital Signs Vital signs: Vital Signs Temperature 97.5 F L 08/05/21 08:00 Pulse Rate 90 08/05/21 08:00 Respiratory Rate 14 08/05/21 08:00 Blood Pressure 124/85 08/05/21 08:00 Pulse Oximetry 98 08/05/21 08:00 Temperature 97.5 F L 08/05/21 08:00 Pulse Rate 90 08/05/21 08:00 Respiratory Rate 14 08/05/21 08:00 Blood Pressure 124/85 08/05/21 08:00 Pulse Oximetry 98 08/05/21 08:00 MDM - Extremity (Nontraumatic) Imaging Data Radiologist's impression: ITS Impressions Hip/Pelvis X-Ray 08/05/21 08:47 IMPRESSION: 1. Normal right hip. 2. Mild lumbar spondylosis and mild bilateral sacroiliac osteoarth
== END 2021-08-05 09:19 | disposition home or self-care (01) ==
PROVIDERS: Emergency Provider Emergency Medicine; PCP Family Medicine
DX: S76.311A Strain of muscle, fascia and tendon of the posterior muscle group at thigh level, right thigh, initial encounter (principal); E11.9 Type 2 diabetes mellitus without complications; F17.210 Nicotine dependence, cigarettes, uncomplicated; M47.816 Spondylosis without myelopathy or radiculopathy, lumbar region; M46.1 Sacroiliitis, not elsewhere classified; X50.9XXA Other and unspecified overexertion or strenuous movements or postures, initial encounter
CPT/HCPCS: 73502; 99283